=== PATIENT | male | born 1995 | race Caucasian/White ===

== ENCOUNTER 2019-05-04 09:12 | Day surgery (SDC) | payer OTHER ==
[~2019-05-04] VITALS: Ht 177.8 cm; Wt 70.9 kg
[~2019-05-04 09:12] MED LIST: NS 1,000 ML IV ONE
[2019-05-04] MEDS ORDERED: PROPOFOL 200 MG/20 ML VIAL As Ordered ONE (10:41)
[2019-05-04] MEDS ORDERED: fentaNYL 100 MCG/2 ML INJECTION (J3010) As Ordered ONE (10:42)
[2019-05-04] MEDS ORDERED: LIDOCAINE 2% INJ 100 MG/5 ML SDV (FOR ANES.) As Ordered ONE (10:42)
--- NOTE | 2019-05-04 11:35 | ROOR ---
Patient Name: Shmuel Rivera Procedure Date: 05/04/2019 11:08 AM Date of : 1995 Age: 23 Room: [facility] Gender: Male Note Status: Finalized Procedure: Upper Endoscopy + Biopsies Indications: Epigastric abdominal pain, Diarrhea Providers: Gilson Anderson MD Referring MD: SONNY DENNIS MD Requesting Provider: Medicines: Monitored Anesthesia Care Complications: No immediate complications. Procedure: Pre-Anesthesia Assessment: - The heart rate, respiratory rate, oxygen saturations, blood pressure, adequacy of pulmonary ventilation, and response to care were monitored throughout the procedure. The Endoscope was introduced through the mouth, and advanced to the second part of duodenum. The upper GI endoscopy was accomplished without difficulty. The patient tolerated the procedure well. Findings: The Z-line was regular and was found 40 cm from the incisors. No other significant abnormalities were identified in a careful examination of the stomach. Biopsies were taken with a cold forceps in the gastric antrum for Helicobacter pylori testing. The exam of the duodenum was otherwise normal. Biopsies for histology were taken with a cold forceps in the first portion of the duodenum for evaluation of celiac disease. The exam was otherwise without abnormality. Impression: - Z-line regular, 40 cm from the incisors. - The examination was otherwise normal. - Biopsies were taken with a cold forceps for Helicobacter pylori testing. - Biopsies were taken with a cold forceps for evaluation of celiac disease. - The examination was otherwise normal. Recommendation: - Patient has a contact number available for emergencies. The signs and symptoms of potential delayed complications were discussed with the patient. Return to normal activities tomorrow. Written discharge instructions were provided to the patient. - High fiber diet. - Discharge patient to home. - Continue present medications. - Await pathology results. - Telephone GI clinic for pathology results in 1 week. - Return to referring physician. - The findings and recommendations were discussed with the patient's family. Gilson Anderson MD Gilson Anderson MD 05/04/2019 11:34:57 AM Electronically signed by Gilson Anderson MD Number of Addenda: 0 Note Initiated On: 05/04/2019 11:08 AM Estimated Blood Loss: Estimated blood loss: none.
[2019-05-04 12:24] VITALS: BP 108/66
== END 2019-05-04 12:23 | disposition home or self-care (01) ==
LOC: M OPP 09:12
PROVIDERS: ATTEND Internal Medicine Gastroenterology
DX: R10.13 Epigastric pain (principal); R19.7 Diarrhea, unspecified; Z83.79 Family history of other diseases of the digestive system
CPT/HCPCS: 43239; 88305; J3010

== ENCOUNTER → 2022-08-29 | Outpatient (CLI) | payer OTHER | LOC: M RAD 07:02 | PROVIDERS: ATTEND Physician Assistant | DX: M51.37 Other intervertebral disc degeneration, lumbosacral region (principal) ==

== ENCOUNTER 2023-02-11 10:33 | Day surgery (SDC) | payer OTHER ==
[~2023-02-11] VITALS: Ht 177.8 cm; Wt 67.5 kg
[2023-02-11] MEDS ORDERED: fentaNYL 100 MCG/2 ML INJECTION As Ordered ONE (10:47)
[2023-02-11] MEDS ORDERED: LIDOCAINE 2% 100MG/5ML SDV (FOR ANES.) As Ordered ONE (10:48)
[2023-02-11] MEDS ORDERED: propofoL 200 MG/20 ML VIAL As Ordered ONE (10:48)
[2023-02-11 11:46] VITALS: TEMP 96.7
[2023-02-11 12:00] VITALS: BP 119/63; O2SAT 100
== END 2023-02-11 12:15 | disposition home or self-care (01) ==
LOC: M OPP 10:33
PROVIDERS: ATTEND Internal Medicine Gastroenterology
DX: K64.0 First degree hemorrhoids (principal); R19.4 Change in bowel habit; K31.89 Other diseases of stomach and duodenum; R12 Heartburn
CPT/HCPCS: 43239; 45378; 88305; J3010

== ENCOUNTER → 2023-08-06 | Outpatient (CLI) | payer OTHER ==
[2023-08-06 16:52] LABS: PLATELET COUNT, AUTOMATED 302 10^3/uL (150-450)
[2023-08-06 17:14] LABS: COLLAGEN EPINEPHRINE 146 SECONDS (74-162)
[2023-08-06 17:15] LABS: INR 1.07; PROTHROMBIN TIME 13.6 SECONDS (12.5-14.5)
[2023-08-06 17:16] LABS: PARTIAL THROMBOPLASTIN TIME 30.7 SECONDS (24.8-34.2)
== END ==
LOC: M LAB 16:19
PROVIDERS: ATTEND Physician Assistant
DX: Z01.818 Encounter for other preprocedural examination (principal)